=== PATIENT | female | born 1965 | race Caucasian/White ===

== ENCOUNTER → 2017-06-04 | Outpatient (CLI) | payer OTHER ==
[2015-12-24 19:41] VITALS: BP 130/92
--- NOTE | 2017-06-05 07:56 | RAD ---
The three views of the left foot indication: Left foot pain post fall. Findings: No acute fracture dislocation within the left foot. No localizing soft tissue swelling. Tub e pectineus bands are noted within place within the 2nd toe metatarsal head without evidence of hardw are loosening or failure. There appears to be a previous bunionectomy involving the great toe metatar hayden head. No soft tissue swelling. Impression: Previous internal fixation of the 2nd toe metatarsal head and suspected prior bunionectom y without evidence of hardware complication. No acute fracture, dislocation or soft tissue swelling w ithin the left foot. Reported By:
--- NOTE | 2017-06-05 07:57 | RAD ---
Three views of the left ankle Indication: Ankle pain. Findings: No acute fracture or dislocation within the left ankle. No localizing soft tissue swelling. Ankle mortise is symmetric. No talar dome osteochondral abnormality. Impression: No acute radiographic abnormality within the left ankle. Reported By:
== END ==
LOC: RAD 17:32
PROVIDERS: ATTEND Nurse Practitioner Family
DX: M25.572 Pain in left ankle and joints of left foot (principal)
CPT/HCPCS: 73610; 73630